=== PATIENT | female | born 1985 | race Caucasian/White ===

== ENCOUNTER 2021-03-20 12:16 | Emergency (ER) | payer MEDICAID, SELFPAY | END 2021-03-20 13:04 | disposition home or self-care (01) | LOC: BURERS 12:16 | DX: R19.7 Diarrhea, unspecified (principal); H66.91 Otitis media, unspecified, right ear; R11.2 Nausea with vomiting, unspecified; E11.9 Type 2 diabetes mellitus without complications; E78.00 Pure hypercholesterolemia, unspecified; I10 Essential (primary) hypertension; D50.9 Iron deficiency anemia, unspecified; F17.210 Nicotine dependence, cigarettes, uncomplicated; Z79.84 Long term (current) use of oral hypoglycemic drugs; Z79.899 Other long term (current) drug therapy | CPT/HCPCS: 99283 ==